=== PATIENT | female | born 2000 | race Caucasian/White ===

== ENCOUNTER 2024-07-09 20:45 | Emergency (ER) | payer BC, SELFPAY ==
--- NOTE | ~2024-07-09 | US_ITS ---
EXAMINATION: US OB <=14 wk fetus w TV DATE: 07/09/2024 21:30 INDICATION: Vaginal bleeding. . TECHNIQUE: Real-time transabdominal and transvaginal pelvic ultrasound was performed. COMPARISON: None. FINDINGS: TRANSABDOMINAL ULTRASOUND: The uterus measures 10.7 x 4.6 x 4.9 cm. TRANSVAGINAL ULTRASOUND: There is a cyst in the endometrial complex with mean diameter of 7 mm that m ay be a gestational sac with estimated gestational age of 5 weeks and 2 days. No yolk sac or po le is identified. The right ovary measures 3.2 x 1.5 x 2.2 cm. The left ovary measures 3.8 x 1.8 x 2. 8 cm. There is no free fluid in the pelvis. IMPRESSION: 1. Cyst in the endometrial complex that may be a gestational sac. Ectopic and spontaneous are not excluded. Serial beta-hCGs are recommended. Reviewed, dictated and finalized at location A. IMPRESSION: 1. Cyst in the endometrial complex that may be a gestational sac. Ectopic preg chelsey and spontaneous are not excluded. Serial beta-hCGs are recommend ed.
[2024-07-09 20:50] VITALS: BP 135/72; PULSE 84; RESP 16; TEMP 36.3; O2SAT 100
[2024-07-09 21:35] LABS: Basophils Percent Auto 0.3 % (0.2-1.2); Eosinophils Percent Auto 0.3 % (0-4.4); Hematocrit 38.1 % (37.0-47.0); Hemoglobin 12.4 g/dL (12.0-15.0); Immature Granulocyte Absolute 0.03 K/mm3 (0.00-0.031); Immature Granulocyte Percent A 0.3 % (0-0.5); Lymphocytes Absolute Auto 2.98 K/mm3 (0.9-3.2); Lymphocytes Percent Auto 28.8 % (18.3-44.2); Mean Corpuscular HGB Conc 32.5 g/dl (32-36); Mean Corpuscular Hemoglobin 28.4 pg (26-34); Mean Corpuscular Volume 87.4 fl (80-100); Mean Platelet Volume 9.5 fl (7.4-10.4); Monocytes Absolute Auto 0.4 K/mm3 (0.1-0.6); Monocytes Percent Auto 3.7 % (2.6-8.5); Neutrophils Absolute Auto 6.9 K/mm3 (1.3-6.7); Neutrophils Percent Auto 66.6 % (45.5-73.1); Platelet Count Result 302 k/mm3 (150-375); Red Blood Count 4.36 M/mm3 (4.2-5.4); Red Cell Distribution Width 14.7 % (11.5-14.5); White Blood Count 10.3 K/mm3 (4.5-10.0)
[2024-07-09 21:44] LABS: Alanine Aminotransferase 12 U/L (6-35); Albumin Level 4.4 g/dL (3.5-5.1); Alkaline Phosphatase 69 U/L (38-126); Anion Gap 8 mmol/L (4-12); Aspartate Amino Transferase 21 U/L (14-36); Bilirubin,Total 0.5 mg/dL (0.2-1.3); Blood Urea Nitrogen 9 mg/dL (7-17); Calcium 9.1 mg/dL (8.4-10.2); Carbon Dioxide 25 mmol/L (22-30); Chloride 103 mmol/L (98-107); Estimated CRCL calculation 159 ml/min; Estimated Glomerular Filt Rate > 60; Glucose 84 mg/dL (65-110); Potassium 3.5 mmol/L (3.4-5.0); Sodium 136 mmol/L (137-145)
[2024-07-09 21:45] LABS: INR 1.1; Prothrombin Time 14.2 Seconds (11.1-14.7)
[2024-07-09 21:46] LABS: Partial Thromboplastin Time 30.7 Seconds (22.3-36.8)
--- NOTE | 2024-07-09 23:14 | ED.FEMALEGU ---
HPI - Female Genitourinary General Chief complaint: Vaginal Bleeding Stated complaint: vaginal bleeding x1week, 6 weeks preg. Time Seen by Provider: 07/09/24 22:18 Source: patient Mode of arrival: ambulatory Limitations: no limitations History of Present Illness HPI Narrative: This is a 23-year-old female who presents to the ED for chief complaint of vaginal bleeding and around 6 weeks . Patient reports that she is currently getting established with an OB. Denies any heavy bleeding. States that the only time she sees blood is when she wipes. Reports that this would be her 2nd with her 1st being last year and ending up in miscarriage. She states that she has had intermittent twinges of lower abdominal pressure that last for 2 seconds and otherwise has no abdominal pain. Denies dizziness, syncope, lightheadedness, back pain, urinary symptoms. Related Data Allergies Allergy/AdvReac Type Severity Reaction Status Date / Time No Known Allergies Allergy Verified 07/09/24 20:46 Review of Systems Review of Systems: All systems as dictated in HPI Exam Narrative: GENERAL: Well-appearing, well-nourished, and in no acute distress. HEAD: Normocephalic, atraumatic. EYES: PERRLA and EOMI. ENT: Nares clear, no rhinorrhea or epistaxis. Mucous membranes moist. Oropharynx without tonsillar hypertrophy exudate or other lesions. NECK: Supple. No adenopathy or masses. CHEST: No respiratory distress. Clear to auscultation. No wheezes rales or rhonchi HEART: Regular rate and rhythm. No murmur heard. Normal peripheral pulses. ABDOMEN: Soft, nontender, nondistended, normal active bowel sounds. MSK: Normal range of motion. No edema. SKIN: Warm, dry, no rash. NEURO: Alert and oriented x4. No focal deficits. PSYCH: Normal mood and affect. Course Vital Signs Vital signs: Vital Signs Temperature 97.3 F L 07/09/24 20:50 Pulse Rate 84 07/09/24 20:50 Respiratory Rate 16 07/09/24 20:50 Blood Pressure 135/72 07/09/24 20:50 Pulse Oximetry 100 07/09/24 20:50 Oxygen Delivery Room Air 07/09/24 20:50 Temperature 97.3 F L 07/09/24 20:50 Pulse Rate 81 10/04/24 23:27 Respiratory Rate 15 07/09/24 23:27 Blood Pressure 128/72 07/09/24 23:27 Pulse Oximetry 99 07/09/24 23:27 Oxygen Delivery Room Air 07/09/24 20:50 MDM - Female Genitourinary MDM Narrative Medical decision making narrative: This is a 23-year-old female who presents to the ED for chief complaint of vaginal bleeding while . Estimated to be around 6 weeks and has been experiencing dark blood while wiping for the past week. Vitals are normal Exam is benign. No acute abdominal pain. Lab work shows normal white count and normal hemoglobin. CMP unremarkable. Beta hCG of 5291. Patient was able to show her my chart with beta-hCG in the 3000's, which is somewhat encouraging. RhoGAM required today and was given. Ultrasound OB IMPRESSION: 1. Cyst in the endometrial complex that may be a gestational sac. Ectopic and spontaneous are not excluded. Serial beta-hCGs are recommended. . Discussed the above findings with the patient. It is still concerning that there is a possible ongoing threatened miscarriage. Very low suspicion for ectopic due to no acute abdominal pain or syncope today. She will continue to follow-up with her OB regarding serial hCG and definitive management. Pt will be discharged in stable condition. Return precautions given and supportive measures discussed. Pt is understanding and agreeable with plan for discharge and follow-up with PCP. Lab Data 07/09/24 21:29 07/09/24 21:29 Labs: Lab Results 07/09/24 Range/Units 21:29 WBC 10.3 H (4.5-10.0) K/mm3 RBC 4.36 (4.2-5.4) M/mm3 Hgb 12.4 (12.0-15.0) g/dL Hct 38.1 (37.0-47.0) % MCV 87.4 (80-100) fl MCH 28.4 (26-34) pg MCHC 32.5 (32-36) g/d
[2024-07-09] MEDS: RHO(D) IMMUNE GLOBULIN 300 MCG/2 ML SYRINGE IM (23:20)
[2024-07-09 23:27] VITALS: BP 128/72; PULSE 81; RESP 15; O2SAT 99
== END 2024-07-09 23:27 | disposition home or self-care (01) ==
PROVIDERS: Registered Nurse; Emergency Provider Physician Assistant; PCP Internal Medicine
DX: O20.0 Threatened abortion (principal); Z3A.01 Less than 8 weeks gestation of pregnancy
CPT/HCPCS: 36415; 76801; 76817; 80053; 84702; 85025; 85461; 85610; 85730; 86850; 86900; 86901; 90384; 96372; 99284; J2790

== ENCOUNTER 2024-08-02 18:12 | Emergency (ER) | payer BC, SELFPAY ==
--- NOTE | ~2024-08-02 | US_ITS ---
FIRST TRIMESTER ULTRASOUND 08/02/2024 22:30 CDT Ordering provider: Kaylee Blair History: . Y . Comparison: None. FINDINGS: INTRAUTERINE GESTATIONAL SAC: Present. YOLK SAC: Present. Measures 6 mm. POLE: Present. Measures 1.9 cm which is equivalent to 8 weeks and 3 days. Small subchorionic bleed is seen measuring 0.8 x 0.4 x 1.1 cm. heart rate is 167 bpm. UTERUS: The uterus measures 8.5x 5.4x 6 cm. in length which is within normal limits. No myometrial ma sses. FREE FLUID: None. OVARIES: Normal in size with the right measuring 2.7x 1.4x 2.2 cm. and the left measuring 3.2x 1.8x 2 .2 cm. Doppler flow is demonstrated within both ovaries. ADNEXAL MASSES: None. IMPRESSION: Single live fetus of 8 weeks and 3 days. NEERAJ is March 11, 2025 Small subchorionic hemorrhage. Reviewed, dictated and finalized at location A.
[2024-08-02 19:03] VITALS: BP 123/76; PULSE 89; RESP 18; TEMP 36.6; O2SAT 100
--- NOTE | 2024-08-02 19:08 | ED.FEMALEGU ---
HPI - Female Genitourinary General Chief complaint: Vaginal Bleeding <Kaylee Blair APRN - Last Filed: 08/02/24 19:26> Stated complaint: 8 weeks , vag bleeding <Kaylee Blair APRN - Last Filed: 08/02/24 19:26> Time Seen by Provider: 08/02/24 18:45 <Kaylee Blair APRN - Last Filed: 08/02/24 19:26> Focused HPI: Patient is a 23-year-old female who presents to the ER with complaints of vaginal bleeding. She reports she is approximately 8 weeks . Patient reports she has had 1 previous but it ended in miscarriage. She endorses lower abdominal cramping, but no nausea/vomiting. Patient denies chest pain, shortness of breath, or urinary symptoms. GENERAL: Well-appearing, well-nourished, and in no acute distress. HEAD: Normocephalic, atraumatic. CHEST: Clear to auscultation. ?No respiratory distress. HEART: Regular rate and rhythm.? NEURO: ?Alert and oriented x3. Patient screened in triage and initial orders placed.? ?Additional care and disposition to be based upon?diagnostic testing and treatment. <Kaylee Blair APRN - Last Filed: 08/02/24 19:26> Related Data Allergies/Adverse reactions: Allergies Allergy/AdvReac Type Severity Reaction Status Date / Time No Known Allergies Allergy Verified 08/02/24 23:42 <Kaylee Blair APRN - Last Filed: 08/02/24 19:26> Review of Systems Review of Systems: CONSTITUTIONAL: Denies fever GASTROINTESTINAL: Reports pelvic cramping <Bebe Gonzalez PA-C - Last Filed: 08/03/24 02:19> All systems reviewed & are unremarkable except as noted in HPI and below <Bebe Gonzalez PA-C - Last Filed: 08/03/24 02:19> PMFSH Past Medical History Medical History: Medical History (Updated 08/03/24 @ 02:17 by Bebe Gonzalez PA-C) No active medical problems <Kaylee Blair APRN - Last Filed: 08/02/24 19:26> Social History Social History: Social History (Updated 08/03/24 @ 02:17 by Bebe Gonzalez PA-C) Smoking status: Never smoker <Kaylee Blair APRN - Last Filed: 08/02/24 19:26> Exam Narrative: GENERAL: Well-appearing, well-nourished, and in no acute distress. HEAD: Normocephalic, atraumatic. EYES: EOMI. CHEST: Clear to auscultation. No respiratory distress. No wheezes rales or rhonchi HEART: Regular rate and rhythm. No murmur heard. Normal peripheral pulses. ABDOMEN: Soft, nontender, nondistended, normal active bowel sounds. EXTREMITIES: Normal range of motion. No edema. SKIN: Warm, dry, no rash. NEURO: No focal deficits. Alert and oriented x3. PSYCH: Normal mood and affect <Bebe Gonzalez PA-C - Last Filed: 08/03/24 02:19> Course Course Emergency Course: Patient updated on her workup and agrees with plan of care <Bebe Gonzalez PA-C - Last Filed: 08/03/24 02:19> Vital Signs Vital signs: Vital Signs Temperature 97.8 F 08/02/24 19:03 Pulse Rate 89 08/02/24 19:03 Respiratory Rate 18 08/02/24 19:03 Blood Pressure 123/76 08/02/24 19:03 Pulse Oximetry 100 08/02/24 19:03 Oxygen Delivery Room Air 08/02/24 19:03 Temperature 97.8 F 08/02/24 19:03 Pulse Rate 88 08/03/24 01:15 Respiratory Rate 18 08/03/24 01:15 Blood Pressure 116/97 H 08/03/24 01:15 Pulse Oximetry 98 08/03/24 01:15 Oxygen Delivery Room Air 08/02/24 19:03 <Kaylee Blair, DOTTY - Last Filed: 08/02/24 19:26> Vital Signs Temperature 97.8 F 08/02/24 19:03 Pulse Rate 89 08/02/24 19:03 Respiratory Rate 18 08/02/24 19:03 Blood Pressure 123/76 08/02/24 19:03 Pulse Oximetry 100 08/02/24 19:03 Oxygen Delivery Room Air 08/02/24 19:03 Temperature 97.8 F 08/02/24 19:03 Pulse Rate 88 08/03/24 01:15 Respiratory Rate 18 08/03/24 01:15 Blood Pressure 116/97 H 08/03/24 01:15 Pulse Oximetry 98 08/03/24 01:15 Oxygen Delivery Room Air 08/02/24 19:03 <Bebe Gonzalez PA-C - Last Filed: 08/03/24 02:19> MDM - Female Genitourinary MDM Narrative Medical decision making narrative: Patient presents to the emergency department for vaginal spotting today. Currently about 8 weeks . Her vitals are stable. Hemoglobin is normal. Patient is O negative. Just received a dose of RhoGAM 3 weeks ago for another episode of bleeding. Ultrasound shows a single living fetus that is measuring 8 weeks and 3 days. Shows a small subchorionic hemorrhage. Patient updated on her workup and agrees with plan of care. She is to follow up with her OB. She was given warnings to return to the ER <Bebe Gonzalez PA-C - Last Filed: 08/03/24 02:19> Differential Diagnosis Differential diagnosis: Likely other (Miscarriage, threatened miscarriage, subchorionic hemorrhage) <Bebe Gonzalez PA-C - Last Filed: 08/03/24 02:19> Lab Data Attestation: I reviewed the patient's lab results. <Bebe Gonzalez PA-C - Last Filed: 08/03/24 02:19> Result diagrams: 08/02/24 20:51 08/02/24 20:50 <Kaylee Blair APRN - Last Filed: 08/02/24 19:26> Labs: Lab Results 08/02/24 08/02/24 08/02/24 Range/Units 20:50 20:51 21:19 WBC 13.2 H (4.5-10.0) K/mm3 RBC 4.31 (4.2-5.4) M/mm3 Hgb 12.2 (12.0-15.0) g/dL Hct 36.9 L (37.0-47.0) % MCV 85.6 (80-100) fl MCH 28.3 (26-34) pg MCHC 33.1 (32-36) g/dl RDW 14.8 H (11.5-14.5) % Plt Count 289 (150-375) k/mm3 MPV 9.6 (7.4-10.4) fl Immature Gran % (Auto) 0.3 (0-0.5) % Neut % (Auto) 73.4 H (45.5-73.1) % Lymph % (Auto) 22.3 (18.3-44.2) % [place] % (Auto) 3.6 (2.6-8.5) % Eos % (Auto) 0.2 (0-4.4) % Baso % (Auto) 0.2 (0.2-1.2) % Lymph # (Auto) 2.95 (0.9-3.2) K/mm3 [place] # (Auto) 0.5 (0.1-0.6) K/mm3 Eos # (Auto) 0.0 (0-0.3) K/mm3 Baso # (Auto) 0.0 (0.0-0.1) K/mm3 Abs Immat Gran (auto) 0.04 H (0.00-0.031) K/mm3 Absolute Neuts (auto) 9.7 H (1.3-6.7) K/mm3 Absolute Nucleated RBC 0.000 (0.0-0.012) K/mm3 Nucleated RBC % 0.0 (0.0-0.2) % Sodium 137 (137-145) mmol/L Potassium 3.7 (3.4-5.0) mmol/L Chloride 102 (98-107) mmol/L Carbon Dioxide 25 (22-30) mmol/L Anion Gap 10 (4-12) mmol/L BUN 8 (7-17) mg/dL Creatinine 0.60 L (0.7-1.0) mg/dL Estim Creat Clear Calc 133 ml/min Estimated GFR > 60 (59 - ) Glucose 80 (65-110) mg/dL Calcium 9.3 (8.4-10.2) mg/dL Total Bilirubin 0.3 (0.2-1.3) mg/dL AST 21 (14-36) U/L ALT 10 (6-35) U/L Alkaline Phosphatase 63 (38-126) U/L Total Protein 8.0 (6.3-8.2) g/dL Albumin 4.4 (3.5-5.1) g/dL Beta HCG, Quant 39427.00 mIU/ML Urine Color Yellow (Yellow) Urine Appearance Clear (Clear) Urine pH 5.0 (5.0-9.0) Ur Specific [place] 1.020 (1.001-1.035) Urine Protein Negative (Negative) mg/dL Urine Glucose (UA) Negative (Negative) mg/dL Urine Ketones 3+ H (Negative) mg/dL Ur Blood (Man) 2+ H (Negative) Urine Nitrate Negative (Negative) Urine Bilirubin Negative (Negative) Urine Urobilinogen 0.2 (<2.0) mg/dL Leukocyte Esterase Rfl Negative (Negative) BARAK/UL Urine RBC 6-10 H (0-2) /hpf Urine WBC 0-5 (0-3) /hpf Ur Squamous Epith Cells None seen (Few) /hpf Urine Bacteria None seen /hpf Urine Casts 0-2 <Kaylee Blair, [employer] - Last Filed: 08/02/24 19:26> Lab Results 08/02/24 08/02/24 08/02/24 Range/Units 20:50 20:51 21:19 WBC 13.2 H (4.5-10.0) K/mm3 RBC 4.31 (4.2-5.4) M/mm3 Hgb 12.2 (12.0-15.0) g/dL Hct 36.9 L (37.0-47.0) % MCV 85.6 (80-100) fl MCH 28.3 (26-34) pg MCHC 33.1 (32-36) g/dl RDW 14.8 H (11.5-14.5) % Plt Count 289 (150-375) k/mm3 MPV 9.6 (7.4-10.4) fl Immature Gran % (Auto) 0.3 (0-0.5) % Neut % (Auto) 73.4 H (45.5-73.1) % Lymph % (Auto) 22.3 (18.3-44.2) % [place] % (Auto) 3.6 (2.6-8.5) % Eos % (Auto) 0.2 (0-4.4) % Baso % (Auto) 0.2 (0.2-1.2) % Lymph # (Auto) 2.95 (0.9-3.2) K/mm3 [place] # (Auto) 0.5 (0.1-0.6) K/mm3 Eos # (Auto) 0.0 (0-0.3) K/mm3 Baso # (Auto) 0.0 (0.0-0.1) K/mm3 Abs Immat Gran (auto) 0.04 H (0.00-0.031) K/mm3 Absolute Neuts (auto) 9.7 H (1.3-6.7) K/mm3 Absolute Nucleated RBC 0.000 (0.0-0.012) K/mm3 Nucleated RBC % 0.0 (0.0-0.2) % Sodium 137 (137-145) mmol/L Potassium 3.7 (3.4-5.0) mmol/L Chloride 102 (98-107) mmol/L Carbon Dioxide 25 (22-30) mmol/L Anion Gap 10 (4-12) mmol/L BUN 8 (7-17) mg/dL Creatinine 0.60 L (0.7-1.0) mg/dL Estim Creat Clear Calc 133 ml/min Estimated GFR > 60 (59 - ) Glucose 80 (65-110) mg/dL Calcium 9.3 (8.4-10.2) mg/dL Total Bilirubin 0.3 (0.2-1.3) mg/dL AST 21 (14-36) U/L ALT 10 (6-35) U/L Alkaline Phosphatase 63 (38-126) U/L Total Protein 8.0 (6.3-8.2) g/dL Albumin 4.4 (3.5-5.1) g/dL Beta HCG, Quant 36872.00 mIU/ML Urine Color Yellow (Yellow) Urine Appearance Clear (Clear) Urine pH 5.0 (5.0-9.0) Ur Specific [place] 1.020 (1.001-1.035) Urine Protein Negative (Negative) mg/dL Urine Glucose (UA) Negative (Negative) mg/dL Urine Ketones 3+ H (Negative) mg/dL Ur Blood (Man) 2+ H (Negative) Urine Nitrate Negative (Negative) Urine Bilirubin Negative (Negative) Urine Urobilinogen 0.2 (<2.0) mg/dL Leukocyte Esterase Rfl Negative (Negative) BARAK/UL Urine RBC 6-10 H (0-2) /hpf Urine WBC 0-5 (0-3) /hpf Ur Squamous Epith Cells None seen (Few) /hpf Urine Bacteria None seen /hpf Urine Casts 0-2 <Bebe Gonzalez PA-C - Last Filed: 08/03/24 02:19> Imaging Data Radiologist's impression: ITS Impressions Ultrasound 08/03/24 00:37 IMPRESSION: Single live fetus of 8 weeks and 3 days. NEERAJ is March 11, 2025 Small subchorionic hemorrhage. <Bebe Gonzalez PA-C - Last Filed: 08/03/24 02:19> Critical Care Time Critical Care Time Critical Care Time: No <Bebe Gonzalez PA-C - Last Filed: 08/03/24 02:19> Discharge Plan Discharge Clinical Impression: Vaginal bleeding in Subchorionic hemorrhage Qualifiers: Trimester: first trimester Qualified Code(s): O20.8 - Other hemorrhage in early <Kaylee Blair APRN - Last Filed: 08/02/24 19:26> Patient Disposition: Home, Self-Care <Kaylee Blair APRN - Last Filed: 08/02/24 19:26> Condition: Stable <Kaylee Blair APRN - Last Filed: 08/02/24 19:26> Instructions: Threatened Miscarriage (ED), Subchorionic Hemorrhage (ED) <Kaylee Blair APRN - Last Filed: 08/02/24 19:26> Additional Instructions: Return to the ER if you experience fever, abdominal pain with nausea and vomiting, you are unable to keep down liquids or solids, worsening pelvic cramping or vaginal bleeding, or any other symptoms that are concerning to you Reglan as needed for nausea. Small, frequent meals. Cassia diet. Remain well hydrated. Pelvic rest, no tampons or sex Follow up with your OB <DOTTY Montoya Last Filed: 08/02/24 19:26> Prescriptions: New metoclopramide HCl 5 mg tablet 5 mg PO Q6H PRN (Reason: nausea and vomiting) Qty: 14 0RF <Kaylee Blair APRN - Last Filed: 08/02/24 19:26> Follow-up/Referrals: Kenton,MD Melva [Primary Care Provider] - <Kaylee Blair, DOTTY - Last Filed: 08/02/24 19:26>
[2024-08-02 21:01] LABS: Basophils Percent Auto 0.2 % (0.2-1.2); Eosinophils Percent Auto 0.2 % (0-4.4); Hematocrit 36.9 % (37.0-47.0); Hemoglobin 12.2 g/dL (12.0-15.0); Immature Granulocyte Absolute 0.04 K/mm3 (0.00-0.031); Immature Granulocyte Percent A 0.3 % (0-0.5); Lymphocytes Absolute Auto 2.95 K/mm3 (0.9-3.2); Lymphocytes Percent Auto 22.3 % (18.3-44.2); Mean Corpuscular HGB Conc 33.1 g/dl (32-36); Mean Corpuscular Hemoglobin 28.3 pg (26-34); Mean Corpuscular Volume 85.6 fl (80-100); Mean Platelet Volume 9.6 fl (7.4-10.4); Monocytes Absolute Auto 0.5 K/mm3 (0.1-0.6); Monocytes Percent Auto 3.6 % (2.6-8.5); Neutrophils Absolute Auto 9.7 K/mm3 (1.3-6.7); Neutrophils Percent Auto 73.4 % (45.5-73.1); Platelet Count Result 289 k/mm3 (150-375); Red Blood Count 4.31 M/mm3 (4.2-5.4); Red Cell Distribution Width 14.8 % (11.5-14.5); White Blood Count 13.2 K/mm3 (4.5-10.0)
[2024-08-02 21:18] LABS: Alanine Aminotransferase 10 U/L (6-35); Albumin Level 4.4 g/dL (3.5-5.1); Alkaline Phosphatase 63 U/L (38-126); Anion Gap 10 mmol/L (4-12); Aspartate Amino Transferase 21 U/L (14-36); Bilirubin,Total 0.3 mg/dL (0.2-1.3); Blood Urea Nitrogen 8 mg/dL (7-17); Calcium 9.3 mg/dL (8.4-10.2); Carbon Dioxide 25 mmol/L (22-30); Chloride 102 mmol/L (98-107); Estimated CRCL calculation 133 ml/min; Estimated Glomerular Filt Rate > 60; Glucose 80 mg/dL (65-110); Potassium 3.7 mmol/L (3.4-5.0); Sodium 137 mmol/L (137-145)
[2024-08-02 21:37] LABS: Add Urine Microscopic? YES; Appearance Urine Clear (Clear); Bacteria Urine None Seen /hpf; Bilirubin Urine Negative (Negative); Blood Urine 2+ (Negative); Color Urine Yellow (Yellow); Glucose Urine UA Negative (Negative); Ketones Urine 3+ mg/dL (Negative); Leukocyte Esterase Ur Negative LEU/UL (Negative); Nitrate Urine Negative (Negative); Non Pathogenic Casts 0-2; Protein Urine Negative (Negative); Squamous Epithelial Cell Urine None Seen /hpf (Few); Urobilinogen Urine 0.2 mg/dL (<2.0); WBC Urine 0-5 /hpf (0-3)
[2024-08-02 23:39] VITALS: BP 140/79; PULSE 101; RESP 18; O2SAT 99
[2024-08-03 01:15] VITALS: BP 116/97; PULSE 88; RESP 18; O2SAT 98
--- NOTE | 2024-08-03 02:12 | ED.PREGNANCY ---
HPI - General Chief complaint: Vaginal Bleeding Stated complaint: 8 weeks , vag bleeding Time Seen by Provider: 08/02/24 18:45 Source: patient Mode of arrival: ambulatory Limitations: no limitations Related Data Allergies Allergy/AdvReac Type Severity Reaction Status Date / Time No Known Allergies Allergy Verified 08/02/24 23:42 Course Vital Signs Vital signs: Vital Signs Temperature 97.8 F 08/02/24 19:03 Pulse Rate 89 08/02/24 19:03 Respiratory Rate 18 08/02/24 19:03 Blood Pressure 123/76 08/02/24 19:03 Pulse Oximetry 100 08/02/24 19:03 Oxygen Delivery Room Air 08/02/24 19:03 Temperature 97.8 F 08/02/24 19:03 Pulse Rate 88 08/03/24 01:15 Respiratory Rate 18 08/03/24 01:15 Blood Pressure 116/97 H 08/03/24 01:15 Pulse Oximetry 98 08/03/24 01:15 Oxygen Delivery Room Air 08/02/24 19:03 MDM - OB/Uterine Contractions Lab Data 08/02/24 20:51 08/02/24 20:50 Labs: Lab Results 08/02/24 08/02/24 08/02/24 Range/Units 20:50 20:51 21:19 WBC 13.2 H (4.5-10.0) K/mm3 RBC 4.31 (4.2-5.4) M/mm3 Hgb 12.2 (12.0-15.0) g/dL Hct 36.9 L (37.0-47.0) % MCV 85.6 (80-100) fl MCH 28.3 (26-34) pg MCHC 33.1 (32-36) g/dl RDW 14.8 H (11.5-14.5) % Plt Count 289 (150-375) k/mm3 MPV 9.6 (7.4-10.4) fl Immature Gran % (Auto) 0.3 (0-0.5) % Neut % (Auto) 73.4 H (45.5-73.1) % Lymph % (Auto) 22.3 (18.3-44.2) % [place] % (Auto) 3.6 (2.6-8.5) % Eos % (Auto) 0.2 (0-4.4) % Baso % (Auto) 0.2 (0.2-1.2) % Lymph # (Auto) 2.95 (0.9-3.2) K/mm3 [place] # (Auto) 0.5 (0.1-0.6) K/mm3 Eos # (Auto) 0.0 (0-0.3) K/mm3 Baso # (Auto) 0.0 (0.0-0.1) K/mm3 Abs Immat Gran (auto) 0.04 H (0.00-0.031) K/mm3 Absolute Neuts (auto) 9.7 H (1.3-6.7) K/mm3 Absolute Nucleated RBC 0.000 (0.0-0.012) K/mm3 Nucleated RBC % 0.0 (0.0-0.2) % Sodium 137 (137-145) mmol/L Potassium 3.7 (3.4-5.0) mmol/L Chloride 102 (98-107) mmol/L Carbon Dioxide 25 (22-30) mmol/L Anion Gap 10 (4-12) mmol/L BUN 8 (7-17) mg/dL Creatinine 0.60 L (0.7-1.0) mg/dL Estim Creat Clear Calc 133 ml/min Estimated GFR > 60 (59 - ) Glucose 80 (65-110) mg/dL Calcium 9.3 (8.4-10.2) mg/dL Total Bilirubin 0.3 (0.2-1.3) mg/dL AST 21 (14-36) U/L ALT 10 (6-35) U/L Alkaline Phosphatase 63 (38-126) U/L Total Protein 8.0 (6.3-8.2) g/dL Albumin 4.4 (3.5-5.1) g/dL Beta HCG, Quant 69810.00 mIU/ML Urine Color Yellow (Yellow) Urine Appearance Clear (Clear) Urine pH 5.0 (5.0-9.0) Ur Specific [place] 1.020 (1.001-1.035) Urine Protein Negative (Negative) mg/dL Urine Glucose (UA) Negative (Negative) mg/dL Urine Ketones 3+ H (Negative) mg/dL Ur Blood (Man) 2+ H (Negative) Urine Nitrate Negative (Negative) Urine Bilirubin Negative (Negative) Urine Urobilinogen 0.2 (<2.0) mg/dL Leukocyte Esterase Rfl Negative (Negative) BARAK/UL Urine RBC 6-10 H (0-2) /hpf Urine WBC 0-5 (0-3) /hpf Ur Squamous Epith Cells None seen (Few) /hpf Urine Bacteria None seen /hpf Urine Casts 0-2 Discharge Plan Discharge Follow-up/Referrals: Kenton,MD Melva [Primary Care Provider] -
[2024-08-03] MEDS: ONDANSETRON HCL ODT 4 MG TABLET PO (02:20)
== END 2024-08-03 02:28 | disposition home or self-care (01) ==
PROVIDERS: Registered Nurse; Emergency Provider Physician Assistant; PCP Internal Medicine
DX: O46.91 Antepartum hemorrhage, unspecified, first trimester (principal); Z3A.08 8 weeks gestation of pregnancy
CPT/HCPCS: 36415; 76801; 80053; 81001; 84702; 85025; 99283; A9270